=== PATIENT | male | born 1950 | race American Indian/Alaskan Native ===

== ENCOUNTER 2016-11-28 19:09 | Emergency (ER) | payer MEDICARE ==
[2016-11-28] MEDS ORDERED: NACL 0.9% 1000 ML 1,000 ML IV ONE (21:42)
[2016-11-28] MEDS ORDERED: ZOFRAN IV ONE (21:42)
[2016-11-28] MEDS ORDERED: PEPCID IV ONE (21:43)
[2016-11-28] MEDS ORDERED: NACL 0.9% 1000 ML 2,000 ML IV ONE (21:43)
[2016-11-28] MEDS ORDERED: BENTYL IM ONE (21:44)
--- NOTE | 2016-11-28 21:46 | Emergency Department Report ---
ED General Adult HPI - General Chief complaint: Abdominal Pain Stated complaint: KNEE PAIN/ABD PAIN/LEAKAGE FROM PREV SURGERY Time Seen by Provider: 11/28/16 21:32 Source: patient, family Mode of arrival: Ambulatory Limitations: Other (patient is intoxicated. He is a poor historian.) - History of Present Illness Initial comments: This is a 66-year-old male. He is previously unknown to me. Has a history of bowel obstruction, with surgical repair in 2009 at another hospital. He doesn' t recall the name of his surgeon. The patient presents to the ER with right hip pain and right knee pain. He reports the pain is achy, and increases with range of motion, and decreases with rest. He reports he feels like his leg is occasionally giving out on him. he thinks he is taking pain medication for this but he is not certain. The patient then reports that he has abdominal pain and black stool. He reports the black stool began after taking Pepto-Bismol. He cannot describe the nature of the abdominal pain. It gets worse when palpated. Of note, the patient consumed a lot of alcohol today. He is drunk. As per family, he did not fall prior to arrival. The patient is not homicidal or suicidal. -: Gradual Location: abdomen, left, right, lower extremity Severity scale (0 -10): 3 Quality: other (per hpi) Consistency: other (per hpi) Improves with: other (per hpi) Associated Symptoms: nausea/vomiting, weakness. denies: chest pain - Related Data Previous Rx's Medication Instructions Recorded Last Taken Type Hydrochlorothiazide [Hctz] 12.5 mg PO QDAY #30 capsule 01/20/15 Unknown Rx Sulfamethoxazole/Trimethoprim 1 each PO BID #28 tablet 01/20/15 Unknown Rx [Bactrim Ds] Cephalexin [Keflex] 500 mg PO Q6HR #28 capsule 08/25/15 Unknown Rx HYDROcodone/APAP 7.5-325 [[place] 7.5 mg PO Q6HR PRN #10 oral.liqd 08/25/15 Unknown Rx 7.5-325 mg per 15 ML] Sulfamethoxazole/Trimethoprim 1 each PO BID #14 tablet 08/25/15 Unknown Rx [Bactrim DS TAB] HYDROcodone/APAP 5-325 [[place] 1 - 2 each PO Q6HR PRN #10 tablet 08/31/15 Unknown Rx 5-325 mg TAB] Dicyclomine [Bentyl] 10 mg PO QID PRN #20 capsule 11/29/16 Unknown Rx Famotidine [Pepcid] 20 mg PO QDAY #30 tablet 11/29/16 Unknown Rx Ondansetron [Zofran Odt] 4 mg PO QID PRN #20 tab.rapdis 11/29/16 Unknown Rx Allergies Allergy/AdvReac Type Severity Reaction Status Date / Time No Known Allergies Allergy Unverified 01/06/15 11:36 ED Review of Systems ROS: Stated complaint: KNEE PAIN/ABD PAIN/LEAKAGE FROM PREV SURGERY Other details as noted in HPI Comment: etoh intox Constitutional: denies: fever Eyes: denies: vision change ENT: denies: epistaxis Respiratory: denies: cough Cardiovascular: denies: chest pain Gastrointestinal: abdominal pain Genitourinary: as per HPI Musculoskeletal: as per HPI Skin: as per HPI Neurological: as per HPI Psychiatric: denies: homicidal thoughts, suicidal thoughts ED Past Medical Hx - Past Medical History Previous Medical History?: Yes Hx Hypertension: Yes Hx Diabetes: Yes Additional medical history: NEUROPATHY/ ANEMIA - Surgical History Past Surgical History?: Yes Additional Surgical History: abd. surgery because of bowel blockage - Social History Smoking Status: Current Every Day Smoker Substance Use Type: Alcohol - Medications Home Medications: Home Medications Medication Instructions Recorded Confirmed Last Taken Type Hydrochlorothiazide [Hctz] 12.5 mg PO QDAY #30 capsule 01/20/15 Unknown Rx Sulfamethoxazole/Trimethoprim 1 each PO BID #28 tablet 01/20/15 Unknown Rx [Bactrim Ds] Cephalexin [Keflex] 500 mg PO Q6HR #28 capsule 08/25/15 Unknown Rx HYDROcodone/APAP 7.5-325 [[place] 7.5 mg PO Q6HR PRN #10 oral.liqd 08/25/15 Unknown Rx 7.5-325 mg per 15 ML] Sulfamethoxazole/Trimethoprim 1 each PO BID #14 tablet 08/25/15 Unknown Rx [Bactrim DS TAB] HYDROcodone/APAP 5-325 [[place] 1 - 2 each PO Q6HR PRN #10 tablet 08/31/15 Unknown Rx 5-325 mg TAB] Dicyclomine [Bentyl] 10 mg PO QID PRN #20 capsule 11/29/16 Unknown Rx Famotidine [Pepcid] 20 mg PO QDAY #30 tablet 11/29/16 Unknown Rx Ondansetron [Zofran Odt] 4 mg PO QID PRN #20 tab.rapdis 11/29/16 Unknown Rx ED Physical Exam - General Limitations: No Limitations, Other (etoh intoxication) General appearance: appears intoxicated - Head Head exam: Present: atraumatic, normocephalic - Eye Eye exam: Present: normal appearance, EOMI. Absent: nystagmus - ENT ENT exam: Present: normal exam, normal orophraynx, mucous membranes moist, TM's normal bilaterally, normal external ear exam - Neck Neck exam: Present: normal inspection, full ROM. Absent: tenderness, meningismus - Respiratory Respiratory exam: Present: normal lung sounds bilaterally. Absent: respiratory distress, wheezes, rales, rhonchi, stridor, chest wall tenderness, accessory muscle use, decreased breath sounds, prolonged expiratory - Cardiovascular Cardiovascular Exam: Present: regular rate, normal rhythm, normal heart sounds. Absent: bradycardia, tachycardia, irregular rhythm, systolic murmur, diastolic murmur, rubs, gallop - GI/Abdominal GI/Abdominal exam: Present: soft, tenderness, normal bowel sounds. Absent: distended, guarding, rebound, rigid, pulsatile mass - Rectal Rectal exam: Present: normal inspection, normal rectal tone, heme (-) stool, other (escorted by Apryl Hanna) - Extremities Exam Extremities exam: Present: normal inspection, full ROM, normal capillary refill. Absent: tenderness, pedal edema, joint swelling, calf tenderness - Back Exam Back exam: Present: normal inspection, full ROM. Absent: tenderness, CVA tenderness (R), CVA tenderness (L), muscle spasm, paraspinal tenderness, vertebral tenderness - Neurological Exam Neurological exam: Present: alert, other (Extraocular movements intact. Tongue midline. No facial droop. Facial sensation intact to light touch in the V1, V2 , V3 distribution bilaterally. 5 and 5 strength in 4 extremities.. Sensation is intact to light touch in 4 extremities.). Absent: motor sensory deficit - Psychiatric Psychiatric exam: Present: normal affect, normal mood - Skin Skin exam: Present: warm, dry, intact, normal color. Absent: rash ED Course Vital Signs 11/28/16 11/28/16 11/28/16 19:34 21:42 22:53 Temperature 98.8 F Pulse Rate 85 80 Respiratory 20 16 Rate Blood Pressure 140/86 140/76 [Right] O2 Sat by Pulse 100 99 99 Oximetry 11/29/16 02:07 Temperature Pulse Rate 82 Respiratory 16 Rate Blood Pressure 138/72 [Right] O2 Sat by Pulse 99 Oximetry - Reevaluation(s) Reevaluation #1: 11/29/16 00:21 differential diagnosis: GI bleed, bowel obstruction, arthritis, alcohol intoxication, intracranial injury, cervical spine injury Assessment and plan: 66-year-old male with multiple complaints. His right lower extremity pain is most likely arthritis. The physical examination is unremarkable. X-rays don't demonstrate fracture or dislocation. This can be followed up by her primary care doctor. Patient is somewhat tender. He is guaiac-negative on rectal examination. Has a history of SBO. Require CT scan. This is pending. Of note, patient had a mechanical fall while in the ER, and I am uncertain if he landed on his head or his neck. He has a GCS of 15, with an NIH score of 0, a noncontrast CT scan of the brain as cervical spine are negative. He is markedly intoxicated at this time, but does not require 1013. Reevaluation #2: 11/29/16 01:02 patient is reassessed. Belly soft on repeat examination. Vital signs are stable. CT scan of the abdomen and pelvis negative. The patient is accompanied by his . She feels comfortable to take him home. The patient is counseled to discontinue and moderate alcohol consumption. He will be discharged at this time. Return precautions are reviewed. ED Medical Decision Making - Lab Data Result diagrams: 11/28/16 21:00 11/28/16 21:00 Vital Signs 11/28/16 11/28/16 11/28/16 19:34 21:42 22:53 Temperature 98.8 F Pulse Rate 85 80 Respiratory 20 16 Rate Blood Pressure 140/86 140/76 [Right] O2 Sat by Pulse 100 99 99 Oximetry Lab Results 11/28/16 11/28/16 11/28/16 Range/Units 21:00 21:00 21:00 WBC 7.8 (4.5-11.0) K/mm3 RBC 4.50 (3.65-5.03) M/mm3 Hgb 14.3 (11.8-15.2) gm/dl Hct 43.4 (35.5-45.6) % MCV 96 H (84-94) fl MCH 32 (28-32) pg MCHC 33 (32-34) % RDW 13.5 (13.2-15.2) % Plt Count 281 (140-440) K/mm3 Lymph % (Auto) 42.1 H (13.4-35.0) % [place] % (Auto) 7.7 H (0.0-7.3) % Eos % (Auto) 1.0 (0.0-4.3) % Baso % (Auto) 0.9 (0.0-1.8) % Lymph # 3.3 (1.2-5.4) K/mm3 [place] # 0.6 (0.0-0.8) K/mm3 Eos # 0.1 (0.0-0.4) K/mm3 Baso # 0.1 (0.0-0.1) K/mm3 Seg Neutrophils % 48.3 (40.0-70.0) % Seg Neutrophils # 3.8 (1.8-7.7) K/mm3 PT 13.6 (12.2-14.9) Sec. INR 1.05 (0.87-1.13) Sodium 143 (137-145) mmol/L Potassium 3.7 (3.6-5.0) mmol/L Chloride 104.0 (98-107) mmol/L Carbon Dioxide 21 L (22-30) mmol/L Anion Gap 22 mmol/L BUN 10 (9-20) mg/dL Creatinine 0.8 (0.8-1.5) mg/dL Estimated GFR > 60 ml/min BUN/Creatinine Ratio 12.50 % Glucose 93 (75-100) mg/dL Lactic Acid (0.7-2.0) mmol/L Calcium 8.9 (8.4-10.2) mg/dL Total Bilirubin 0.50 (0.1-1.2) mg/dL AST 28 (5-40) units/L ALT 29 (7-56) units/L Alkaline Phosphatase 135 H (35-129) units/L Total Protein 7.6 (6.3-8.2) g/dL Albumin 4.1 (3.9-5) g/dL Albumin/Globulin Ratio 1.2 % Lipase (13-60) units/L Plasma/Serum Alcohol (0-0.07) gm% Blood Type Antibody Screen ELLIE Antibody Screen 11/28/16 11/28/16 11/28/16 Range/Units 21:00 21:00 22:04 WBC (4.5-11.0) K/mm3 RBC (3.65-5.03) M/mm3 Hgb (11.8-15.2) gm/dl Hct (35.5-45.6) % MCV (84-94) fl MCH (28-32) pg MCHC (32-34) % RDW (13.2-15.2) % Plt Count (140-440) K/mm3 Lymph % (Auto) (13.4-35.0) % [place] % (Auto) (0.0-7.3) % Eos % (Auto) (0.0-4.3) % Baso % (Auto) (0.0-1.8) % Lymph # (1.2-5.4) K/mm3 [place] # (0.0-0.8) K/mm3 Eos # (0.0-0.4) K/mm3 Baso # (0.0-0.1) K/mm3 Seg Neutrophils % (40.0-70.0) % Seg Neutrophils # (1.8-7.7) K/mm3 PT (12.2-14.9) Sec. INR (0.87-1.13) Sodium (137-145) mmol/L Potassium (3.6-5.0) mmol/L Chloride (98-107) mmol/L Carbon Dioxide (22-30) mmol/L Anion Gap mmol/L BUN (9-20) mg/dL Creatinine (0.8-1.5) mg/dL Estimated GFR ml/min BUN/Creatinine Ratio % Glucose (75-100) mg/dL Lactic Acid 2.80 H* (0.7-2.0) mmol/L Calcium (8.4-10.2) mg/dL Total Bilirubin (0.1-1.2) mg/dL AST (5-40) units/L ALT (7-56) units/L Alkaline Phosphatase (35-129) units/L Total Protein (6.3-8.2) g/dL Albumin (3.9-5) g/dL Albumin/Globulin Ratio % Lipase 15 (13-60) units/L Plasma/Serum Alcohol 0.36 H (0-0.07) gm% Blood Type Antibody Screen ELLIE Antibody Screen 11/28/16 Range/Units 22:06 WBC (4.5-11.0) K/mm3 RBC (3.65-5.03) M/mm3 Hgb (11.8-15.2) gm/dl Hct (35.5-45.6) % MCV (84-94) fl MCH (28-32) pg MCHC (32-34) % RDW (13.2-15.2) % Plt Count (140-440) K/mm3 Lymph % (Auto) (13.4-35.0) % [place] % (Auto) (0.0-7.3) % Eos % (Auto) (0.0-4.3) % Baso % (Auto) (0.0-1.8) % Lymph # (1.2-5.4) K/mm3 [place] # (0.0-0.8) K/mm3 Eos # (0.0-0.4) K/mm3 Baso # (0.0-0.1) K/mm3 Seg Neutrophils % (40.0-70.0) % Seg Neutrophils # (1.8-7.7) K/mm3 PT (12.2-14.9) Sec. INR (0.87-1.13) Sodium (137-145) mmol/L Potassium (3.6-5.0) mmol/L Chloride (98-107) mmol/L Carbon Dioxide (22-30) mmol/L Anion Gap mmol/L BUN (9-20) mg/dL Creatinine (0.8-1.5) mg/dL Estimated GFR ml/min BUN/Creatinine Ratio % Glucose (75-100) mg/dL Lactic Acid (0.7-2.0) mmol/L Calcium (8.4-10.2) mg/dL Total Bilirubin (0.1-1.2) mg/dL AST (5-40) units/L ALT (7-56) units/L Alkaline Phosphatase (35-129) units/L Total Protein (6.3-8.2) g/dL Albumin (3.9-5) g/dL Albumin/Globulin Ratio % Lipase (13-60) units/L Plasma/Serum Alcohol (0-0.07) gm% Blood Type O POSITIVE Antibody Screen TNR ELLIE Antibody Screen Negative - Radiology Data Radiology results: report reviewed, image reviewed interpreted by me: X-ray of the pelvis is negative for acute disease. X-ray of the knee is negative for fracture and dislocation. CT scan of the brain and cervical spine are negative for acute disease. CT scan of the abdomen and pelvis with IV contrast is negative for acute disease. Critical care attestation.: If time is entered above; I have spent that time in minutes in the direct care of this critically ill patient, excluding procedure time. ED Disposition Clinical Impression: Abdominal pain, Alcohol intoxication Disposition: DISCHARGED TO HOME OR SELFCARE Is pt being admited?: No Does the pt Need Aspirin: No Condition: Stable Instructions: Alcohol Intoxication (ED), Abuse of Alcohol (ED) Additional Instructions: Take the pain medication, nausea medication as directed. Moderate consumption of alcohol. Alcohol is not good for your health. Follow-up with the primary care doctor within the next week. Dr. Blanton is a primary care doctor. Dr. Echeverria is a local primary care doctor. Follow-up with a machine guide base winder within the next month. Dr. fowler as a local machine guide base winder. Discontinue consumption of Pepto-Bismol. Return to the ER right away with new pain, worsened pain, migration of pain, fevers or chills, intractable nausea or vomiting, inability to tolerate liquid feeds. Prescriptions: Dicyclomine [Bentyl] 10 mg PO QID PRN #20 capsule PRN Reason: Pain Famotidine [Pepcid] 20 mg PO QDAY #30 tablet Ondansetron [Zofran Odt] 4 mg PO QID PRN #20 tab.rapdis PRN Reason: Nausea Referrals: PRIMARY CARE, [Primary Care Provider] - 3-5 Days NORBERTO ECHEVERRIA MD [Staff Physician] - 3-5 Days BETY BLANTON MD [Staff Physician] - 3-5 Days KURT FOWLER MD [Staff Physician] - 3-5 Days
[2016-11-28 21:53] LABS: Basophils % (Auto) 0.9 % (0.0-1.8); Hematocrit 43.4 % (35.5-45.6); Hemoglobin 14.3 gm/dl (11.8-15.2); Mean Corpuscular HGB Conc 33 % (32-34); Mean Corpuscular Hemoglobin 32 pg (28-32); Mean Corpuscular Volume 96 fl (84-94); Platelet Count 281 K/mm3 (140-440); Red Cell Distribution Width 13.5 % (13.2-15.2); White Blood Count 7.8 K/mm3 (4.5-11.0)
[2016-11-28 22:03] LABS: INR 1.05 (0.87-1.13)
[2016-11-28 22:05] LABS: Alanine Aminotransferase 29 units/L (7-56); Albumin 4.1 g/dL (3.9-5); Albumin/Globulin Ratio 1.2 %; Alkaline Phosphatase 135 units/L (35-129); Anion Gap 22 mmol/L; Blood Urea Nitrogen 10 mg/dL (9-20); Calcium 8.9 mg/dL (8.4-10.2); Carbon Dioxide 21 mmol/L (22-30); Glucose 93 mg/dL (75-100); Potassium 3.7 mmol/L (3.6-5.0); Sodium 143 mmol/L (137-145); Total Protein 7.6 g/dL (6.3-8.2)
[2016-11-28] MEDS ORDERED: NACL ONE (23:29)
--- NOTE | 2016-11-29 00:07 | Cat Scan Report ---
FINAL REPORT PROCEDURE: CT CERVICAL SPINE WO CON TECHNIQUE: Computerized tomography of the cervical spine was performed from the skull base to T1 without contrast material. HISTORY: etoh fall COMPARISON: No prior studies are available for comparison. FINDINGS: The alignment of the vertebral segments is normal. The heights of the vertebral bodies are maintained. Mild loss of disc space height identified from the C3-4 through the C6-7 levels. Slight posterior bulging discs are identified at the C 3 4, C4-5, C5-6 and C6-7 levels. Moderate spur formation off the vertebral bodies and slight hypertrophy of the facets is identified at all levels. The AP spinal canal is maintained. Mild bilateral neuroforamen stenosis identified at the C 4 5, C5-6 and C6-7 levels. IMPRESSION: There is no evidence of an acute fracture or dislocation of the cervical spine. Moderate arthritis and degenerative disc changes as described..
--- NOTE | 2016-11-29 00:07 | Cat Scan Report ---
FINAL REPORT PROCEDURE: CT HEAD/BRAIN WO CON TECHNIQUE: Computerized tomography of the head was performed without contrast material. HISTORY: etoh fall COMPARISON: No prior studies are available for comparison. FINDINGS: Skull and scalp: Normal. Paranasal sinuses: Normal. Ventricles and subarachnoid spaces: Normal. Cerebrum: No evidence of hemorrhage, acute infarction or mass . Cerebellum and brainstem: No evidence of hemorrhage, acute infarction or mass. Vasculature: Normal. Comments: None. IMPRESSION: There is no evidence of an acute intracranial process.
--- NOTE | 2016-11-29 00:29 | Cat Scan Report ---
FINAL REPORT PROCEDURE: CT ABDOMEN PELVIS W CON TECHNIQUE: Computerized axial tomography of the abdomen and pelvis was performed after the IV injection of iodinated nonionic contrast. HISTORY: GI Bleed PAIN ABOVE BLADDER COMPARISON: No prior studies are available for comparison. FINDINGS: Visualized lower thorax: No significant abnormality. Liver: The liver size is normal. There is fatty infiltration of the liver. Spleen: Normal size and attenuation. Gallbladder and biliary system: Normal. Pancreas: Normal. Adrenals: Normal. Kidneys: Both kidneys have normal size. No hydronephrosis. No renal stones are identified. Small sub centimeter renal cortical cysts are noted... GI tract: The stomach is normal. The small bowel has a normal appearance. No obstruction, ileus or enteritis. The cecum, appendix region and colon are normal.. Lymph nodes and mesentery: Normal. Vasculature: Normal. Bladder: Normal. Reproductive organs: Normal. Peritoneum: No free fluid. Musculoskeletal structures: No significant abnormality. Other: None. IMPRESSION: There is no evidence of intestinal or urinary tract obstruction. No ileus or enteritis. There is fatty infiltration of the liver.
[2016-11-29 02:08] VITALS: BP 138/72
--- NOTE | 2016-11-29 08:17 | XRay Report ---
RIGHT KNEE: History: Knee pain after trauma. Findings: The bony architecture is intact without evidence of fracture or dislocation. No significant soft tissue abnormality is seen. IMPRESSION: Normal right knee.
--- NOTE | 2016-11-29 08:17 | XRay Report ---
AP PELVIS: History: Hip pain. AP view of the pelvis shows normal pelvic contour and soft tissues. The hips are symmetric and within normal limits as are the sacroiliac joints. IMPRESSION: Normal pelvis.
== END 2016-11-29 02:07 | disposition home or self-care (01) ==
LOC: ED 19:09
DX: R10.9 Unspecified abdominal pain (principal); F10.129 Alcohol abuse with intoxication, unspecified; I10 Essential (primary) hypertension; E11.9 Type 2 diabetes mellitus without complications; D64.9 Anemia, unspecified; F17.200 Nicotine dependence, unspecified, uncomplicated
CPT/HCPCS: 36415; 70450; 72125; 72170; 73562; 74177; 80053; 82140; 82271; 83690; 85025; 85610; 86850; 86900; 86901; 96361; 96365; 96372; 96375; 99284; G0480; J0500; J2405; J7030; Q9967; 80320

== ENCOUNTER 2018-03-31 17:53 | Emergency (ER) | payer MEDICARE ==
[2018-03-31 18:32] LABS: Basophils % (Auto) 0.5 % (0.0-1.8); Eosinophils # (Auto) 0.2 K/mm3 (0.0-0.4); Eosinophils % (Auto) 2.5 % (0.0-4.3); Hematocrit 44.7 % (35.5-45.6); Hemoglobin 14.7 gm/dl (11.8-15.2); Lymphocytes # (Auto) 2.9 K/mm3 (1.2-5.4); Lymphocytes % (Auto) 39.1 % (13.4-35.0); Mean Corpuscular HGB Conc 33 % (32-34); Mean Corpuscular Hemoglobin 32 pg (28-32); Mean Corpuscular Volume 96 fl (84-94); Monocytes # (Auto) 0.8 K/mm3 (0.0-0.8); Monocytes % (Auto) 10.3 % (0.0-7.3); Platelet Count 350 K/mm3 (140-440); Red Blood Count 4.66 M/mm3 (3.65-5.03); Red Cell Distribution Width 13.8 % (13.2-15.2)
[2018-03-31 18:34] LABS: Partial Thromboplastin Time 32.4 Sec. (24.2-36.6)
[2018-03-31 18:35] LABS: BUN/Creatinine Ratio 15; Blood Urea Nitrogen 12 mg/dL (9-20); Calcium 8.8 mg/dL (8.4-10.2); Hemolysis Index 6
[2018-03-31] MEDS ORDERED: TYLENOL #3 PO ONE (18:55)
--- NOTE | 2018-03-31 19:43 | Cat Scan Report ---
FINAL REPORT EXAM: CT HEAD/BRAIN WO CON HISTORY: neuro deficits < 6hrs or sx present upon awakening TECHNIQUE: Noncontrast CT axial images of the brain. PRIORS: 28 Nov 2016. FINDINGS: No parenchymal mass, mass effect, hemorrhage, midline shift or hydrocephalus. No evidence of acute cortical infarct. No abnormal, extra-axial fluid or air collection. Osseous calvarium grossly intact. Mild mucosal thickening scattered in the frontal and ethmoid sinuses. IMPRESSION: 1. No acute intracranial findings.
[2018-03-31 20:00] LABS: Alanine Aminotransferase 27 units/L (7-56); Albumin 4.4 g/dL (3.9-5)
[2018-03-31] MEDS ORDERED: HumuLIN R ONE (20:02)
[2018-03-31 20:05] LABS: Bilirubin,Direct < 0.2 mg/dL (0-0.2)
[2018-03-31] MEDS ORDERED: NACL 0.9% 1000 ML 1,000 ML IV ONE (21:00)
[2018-03-31] MEDS ORDERED: NACL 0.9% 1000 ML 2,000 ML IV ONE (21:01)
[2018-03-31] MEDS ORDERED: BABY ASPIRIN PO ONE ×2 (21:02→22:04)
[2018-03-31] MEDS ORDERED: VITAMIN B-1 100 MG, FOLVITE 1 MG, INFUVITE 10 ML in NACL 0.9% 1000 ML 1,000 ML IV ONE (21:02)
--- NOTE | 2018-03-31 21:02 | Emergency Department Report ---
HPI - General Chief Complaint: Weakness Time Seen by Provider: 03/31/18 18:48 - HPI HPI: The patient is a 67 yo male presents for evaluation of right arm weakness and numbness. The patient reports that one hour prior to arrival he developed sudden onset of right arm decreased motor strength and numbness, causing him to drop a cup that he was holding. He states that his symptoms were severe and constant for 10-15 minutes, and resolved just prior to arrival to the emergency department. He shares that he has a long-standing history of the same symptoms occurring transiently for the past 6-8 months. The patient denies fever, head injury, headache, neck pain, neck stiffness, vision or hearing changes, smell or taste changes, other paresthesias, other motor weakness, facial drooping, slurred speech, seizure-like activity, urine or bowel incontinence or retention , or other focal neurological deficit. He admits to consuming alcohol earlier today. ED Past Medical Hx - Past Medical History Hx Hypertension: Yes Hx Diabetes: Yes Additional medical history: NEUROPATHY/ ANEMIA - Surgical History Additional Surgical History: abd. surgery because of bowel blockage - Social History Smoking Status: Current Every Day Smoker Substance Use Type: Alcohol, Marijuana - Medications Home Medications: Home Medications Medication Instructions Recorded Confirmed Last Taken Type Sulfamethoxazole/Trimethoprim 1 each PO BID #28 tablet 01/20/15 Unknown Rx [Bactrim Ds] hydroCHLOROthiazide [Hctz] 12.5 mg PO QDAY #30 capsule 01/20/15 Unknown Rx HYDROcodone/APAP 7.5-325 [[place] 7.5 mg PO Q6HR PRN #10 oral.liqd 08/25/15 Unknown Rx 7.5-325 mg per 15 ML] Sulfamethoxazole/Trimethoprim 1 each PO BID #14 tablet 08/25/15 Unknown Rx [Bactrim DS TAB] cephALEXin [Keflex] 500 mg PO Q6HR #28 capsule 08/25/15 Unknown Rx HYDROcodone/APAP 5-325 [[place] 1 - 2 each PO Q6HR PRN #10 tablet 08/31/15 Unknown Rx 5-325 mg TAB] Dicyclomine [Bentyl] 10 mg PO QID PRN #20 capsule 11/29/16 Unknown Rx Famotidine [Pepcid] 20 mg PO QDAY #30 tablet 11/29/16 Unknown Rx Ondansetron [Zofran Odt] 4 mg PO QID PRN #20 tab.rapdis 11/29/16 Unknown Rx Acetaminophen [Tylenol] 1,000 mg PO Q6HR #20 tablet 03/31/18 Unknown Rx Aspirin [Aspirin BABY CHEW TAB] 81 mg PO QDAY #30 tab.chew 03/31/18 Unknown Rx ED Review of Systems ROS: Stated complaint: RIGHT SIDE WEAKNESS Other details as noted in HPI Constitutional: denies: fever ENT: denies: throat or neck pain Respiratory: denies: cough, shortness of breath Cardiovascular: denies: chest pain Endocrine: denies unexplained weight loss or gain Gastrointestinal: denies: abdominal pain, nausea Genitourinary: denies: dysuria Musculoskeletal: denies: leg swelling Skin: denies: rash Neurological: reports arm wekaness and numbness denies: headache Hematological/Lymphatic: denies: easy bleeding or easy bruising Psych: denies sadness or hopelessness Physical Exam - Physical Exam Vital Signs: Vital Signs 03/31/18 03/31/18 03/31/18 18:30 18:53 19:15 Temperature 97.9 F Pulse Rate 118 H 113 H Respiratory 14 16 16 Rate Blood Pressure 141/87 Blood Pressure 140/95 [Left] O2 Sat by Pulse 99 98 98 Oximetry 03/31/18 19:39 Temperature Pulse Rate Respiratory 16 Rate Blood Pressure Blood Pressure [Left] O2 Sat by Pulse Oximetry Physical Exam: General: well-nourished, well-developed, no acute distress Head: Normocephalic, atraumatic Eyes: normal sclera ENT: Mucous membranes are pale and dry Neck: No neck stiffness, no cervical adenopathy Respiratory: Breath sounds equal bilaterally, no wheezing, rales, or rhonchi Cardio: S1 and S2 present, no murmurs, rubs, gallops, capillary refill is delayed Abdomen: Normoactive bowel sounds, soft abdomen, no rigidity, no guarding or rebound tenderness Chest WALL/Back: No tenderness to palpation of the chest wall, no CVA tenderness with percussion Musc: No pitting edema Skin: No rash Neuro: alert oriented x4, normal cognition, speech normal, PERRL, EOM intact, no facial drooping, no uvula or tongue deviation on protrusion, no deficit with rotation of neck or shoulder shrug, no obvious gross motor deficit in the upper or lower extremities with flexion or extension at the shoulder, elbow, wrist, hip, knee, or ankle bilaterally, no obvious gross sensation deficit to crude touch or 2 pt discrimination, 2+ symmetric reflexes on DTR testing, no coordination deficit with [id number] or [id number] testing, Babinski downgoing, romberg negative, patient able to to ambulate without abnormal gait Psych: Normal affect ED Course Vital Signs 03/31/18 03/31/18 03/31/18 18:30 18:53 19:15 Temperature 97.9 F Pulse Rate 118 H 113 H Respiratory 14 16 16 Rate Blood Pressure 141/87 Blood Pressure 140/95 [Left] O2 Sat by Pulse 99 98 98 Oximetry 03/31/18 19:39 Temperature Pulse Rate Respiratory 16 Rate Blood Pressure Blood Pressure [Left] O2 Sat by Pulse Oximetry ED Medical Decision Making - Lab Data Result diagrams: 03/31/18 18:15 03/31/18 18:15 - Medical Decision Making The patient was seen and examined by myself. The patient is placed on a panel monitor and continuous pulse ox. On initial evaluation, the patient was found to be in no distress. Evaluation orders are placed. Lab results revealed elevated CK level of 900. CT scan of the head was negative. The patient was given a tablet of aspirin for treatment of suspected TIA. IV normal saline fluid boluses were ordered for treatment of his rhabdomyolysis, the patient refused. The patient is informed of risks of refusal of further care /stabilization and signing out AGAINST MEDICAL ADVICE, including potential risk of increased morbidity and/or , versus benefits of further treatment and stablization. The patient is informed of treatment options and outside facility options for futher treatment and definitive stablization. The patient is able to verbalize their treatment options and benefits of treatments, versus risks of refusal of further care. The patient is competent to make medical decisions and signed out AGAINST MEDICAL ADVICE. Critical care attestation.: If time is entered above; I have spent that time in minutes in the direct care of this critically ill patient, excluding procedure time. ED Disposition Clinical Impression: Dehydration, TIA (transient ischemic attack) Rhabdomyolysis Qualifiers: Rhabdomyolysis type: non-traumatic Qualified Code(s): M62.82 - Rhabdomyolysis Disposition: LEFT AGAINST MED ADVICE Is pt being admited?: No Does the pt Need Aspirin: No Condition: Undetermined Instructions: Transient Ischemic Attack (ED), Self Care Measures After a Stroke (ED) Referrals: COTY SHIN MD [Staff Physician] - 3-5 Days [facility] [Outside] - 3-5 Days Forms: AMA Form Time of Disposition: 21:02
[2018-03-31] MEDS ORDERED: TYLENOL PO ONE (22:04)
[2018-03-31 22:12] VITALS: BP 144/84
== END 2018-03-31 22:13 | disposition left against medical advice (07) ==
LOC: ED 17:53
DX: E86.0 Dehydration (principal); G45.9 Transient cerebral ischemic attack, unspecified; M62.82 Rhabdomyolysis; I10 Essential (primary) hypertension; E11.9 Type 2 diabetes mellitus without complications; F17.200 Nicotine dependence, unspecified, uncomplicated; F12.10 Cannabis abuse, uncomplicated
CPT/HCPCS: 36415; 70450; 80048; 80074; 82140; 82550; 82962; 83735; 84484; 85025; 85610; 85670; 85730; 93005; 93010; 99285; G0480; 80320; J1815; J3411; J7030

== ENCOUNTER 2019-03-12 22:20 | Emergency (ER) | payer MEDICARE ==
--- NOTE | 2019-03-12 22:34 | Event Note ---
ED Screening Note Date of service: 03/12/19 Time: 22:32 ED Screening Note: This is a 68 y.o. M. that presents to the ER with RUE numbness. Patient states he drunk 3 x 20 oz beers. This initial assessment/diagnostic orders/clinical plan/treatment(s) is/are subject to change based on patients health status, clinical progression and re- assessment by fellow clinical providers in the ED. Further treatment and workup at subsequent clinical providers discretion. Patient/guardian urged not to elope from the ED as their condition may be serious if not clinically assessed and managed. Initial orders include: Labs
[2019-03-12 22:36] VITALS: BP 169/88
[2019-03-12 23:23] LABS: Basophils # (Auto) 0.1 K/mm3 (0.0-0.1); Basophils % (Auto) 0.7 % (0.0-1.8); Eosinophils # (Auto) 0.2 K/mm3 (0.0-0.4); Hematocrit 45.7 % (35.5-45.6); Hemoglobin 15.4 gm/dl (11.8-15.2); Lymphocytes # (Auto) 3.6 K/mm3 (1.2-5.4); Mean Corpuscular HGB Conc 34 % (32-34); Mean Corpuscular Volume 97 fl (84-94); Monocytes # (Auto) 0.7 K/mm3 (0.0-0.8); Monocytes % (Auto) 8.3 % (0.0-7.3); Platelet Count 354 K/mm3 (140-440); Red Blood Count 4.73 M/mm3 (3.65-5.03); Red Cell Distribution Width 13.3 % (13.2-15.2)
[2019-03-12 23:37] LABS: Alanine Aminotransferase 20 units/L (7-56); Albumin 4.7 g/dL (3.9-5); BUN/Creatinine Ratio 15; Blood Urea Nitrogen 15 mg/dL (9-20); Calcium 9.8 mg/dL (8.4-10.2); Hemolysis Index 13
== END 2019-03-12 23:00 | disposition left against medical advice (07) ==
LOC: ED 22:20
DX: R20.0 Anesthesia of skin (principal); Z53.21 Procedure and treatment not carried out due to patient leaving prior to being seen by health care provider
CPT/HCPCS: 36415; 80053; 80320; 85025; G0480